=== PATIENT | male | born 2000 | race Caucasian/White ===

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

== ENCOUNTER 2019-08-25 13:23 | Outpatient (REF) | payer OTHER, SELFPAY ==
[2019-08-25 22:15] LABS: HCT 41.3 % (40.0-50.0); HGB 14.1 g/dL (13.5-17.5); Mean Corp. HGB Concentration 34.1 g/dL (32.0-36.0); Mean Corpuscular Hemoglobin 28.9 pg (27.0-33.0); Mean Corpuscular Volume 84.6 fL (80-95); Mean Platelet Volume 9.8 fL (8.0-11.0); Platelet Count 288 x1000/uL (130-400); RBC 4.88 m/cumm (4.50-6.00); RBC Distribution Width 12.5 % (11.8-14.1); White Blood Cell Count 4.67 k/cumm (4.4-10.8)
[2019-08-25 22:41] LABS: ALT 19 U/L (16-63); AST 14 U/L (15-37); Anion Gap 7.7 mmol/L (3-11); BUN 9 mg/dL (7-18); CO2 29.3 mmol/L (21.0-32.0); CREATININE 0.84 mg/dL (0.70-1.30); Calcium 8.9 mg/dL (8.5-10.1); Chloride 105 mmol/L (98-107); Glucose 93 mg/dL (70-100); Lipase 68 U/L (73-393); Potassium 4.2 mmol/L (3.5-5.1); Sodium 142 mmol/L (136-145); TSH 0.57 uIU/mL (0.52-4.13)
== END 2019-08-25 13:43 ==
LOC: NCHCO 13:23
PROVIDERS: PCP Family Medicine; Visit Provider Nurse Practitioner Family
DX: R10.9 Unspecified abdominal pain (principal); R53.83 Other fatigue
CPT/HCPCS: 80048; 83690; 85027; 84443; 84450; 84460

== ENCOUNTER 2019-09-20 08:27 | Outpatient (CLI) | payer OTHER, SELFPAY | END 2019-09-20 08:47 | PROVIDERS: PCP Nurse Practitioner Family; Visit Provider Internal Medicine Cardiovascular Disease | DX: R07.9 Chest pain, unspecified (principal); K21.9 Gastro-esophageal reflux disease without esophagitis | CPT/HCPCS: 93005; 93010 ==

== ENCOUNTER 2020-01-04 12:06 | Emergency (ER) | payer OTHER, SELFPAY ==
[2020-01-04 12:15] VITALS: BP 127/61; PULSE 96; RESP 18; TEMP 36.7; O2SAT 98
[2020-01-04] MEDS: Ondansetron O.D.T. 4 MG TABEF PO (12:31)
--- NOTE | 2020-01-04 12:56 | NUR.NOTE ---
given small amt of ice chips
[2020-01-04 13:57] VITALS: BP 109/85; PULSE 99; RESP 15; TEMP 37; O2SAT 97
--- NOTE | 2020-01-04 13:58 | NUR.NOTE ---
tolerated ice chips, taking sips of layne marlon
--- NOTE | 2020-01-04 14:04 | W.ED.GENAD ---
Discharge Plan Disposition Patient Disposition: HOME Condition: Stable Discharge Details Chief Complaint: Nausea/Vomit/Diar Clinical Impression: Nausea and vomiting, Loose stools Primary Care Provider: Racquel Mcdonnell ED Provider: Dionte Vasquez Home Meds and New Rx's Prescriptions: New ondansetron HCl 4 mg tablet 4 mg PO Q8H PRN (Reason: nausea and vomiting) Qty: 10 RF: 0 Continued omeprazole 20 mg capsule,delayed release(DR/EC) 20 mg PO DAILY RF: 0 Discharge Instructions Instructions: Gastroenteritis (ED), Acute Nausea and Vomiting (ED) Additional Instructions: Maintain a clear liquid diet today. Be sure to frequently take small sips of fluid in order to stay hydrated. Tomorrow morning you may advance your diet slowly to bland foods as tolerated. On you may advance her diet further as tolerated. Please contact your primary care physician to arrange follow-up. Return to the ER for any worsening or new concerning symptoms. Medical Decision Making 19-year-old male here with nausea and vomiting and loose stool since early this morning. His girlfriend also has same symptoms and they note that they both ate [employer] last night and think they may have food poisoning. Patient does have some mild upper abdominal discomfort which I suspect is muscular secondary to vomiting. He had he has mild dehydration on exam. Hemodynamically stable. Patient was administered Zofran orally and was reassessed. He noted significant improvement and was tolerating oral fluids. Usual customary discharge instructions were provided. Patient was encouraged to return immediately should he have any worsening or new concerning symptoms. HPI General Mode of arrival: ambulatory. Date/Time Provider Initiated Documentation: 01/04/20 12:22. Limitations to Documentation: no limitations. Information obtained by: patient. HPI Narrative: 19-year-old male presents with his girlfriend both complaining of nausea and vomiting. He states that yesterday they ate [employer] and thinks he may have food poisoning. His nausea and vomiting has been severe since that started around 2 AM. No modifiers. He denies hematemesis. No abdominal pain. He has had loose stools, nonbloody. Related Data Home Medications Medication Instructions Recorded Confirmed omeprazole 20 mg capsule,delayed 20 mg PO DAILY 09/17/19 09/17/19 release ondansetron HCl 4 mg PO Q8H PRN #10 tab 01/04/20 Previous Rx's Medication Instructions Recorded ondansetron HCl 4 mg PO Q8H PRN #10 tab 01/04/20 Allergies Allergy/AdvReac Type Severity Reaction Status Date / Time No Known Allergies Allergy Unverified 09/20/19 13:05 General Stated Complaint: Nausea/Vomit/Diar VINI: 3 Review of Systems All systems reviewed & are unremarkable except as noted in HPI and below Constitutional Constitutional: Reports body ache(s) and Denies fever(s) Gastrointestinal Gastrointestinal: Denies abdominal pain, Reports loose stools, Reports nausea, Reports vomiting and Reports other (cramps) [facility]LY [facility] Medical History Abdominal pain (Acute) Chest pain (Acute) Chest pain (Acute) Depression (Chronic) GERD (gastroesophageal reflux disease) (Chronic) Social History Smoking/Tobacco Use Status: Never Tobacco: How many years used: 4 Alcohol Intake: never Drug use: Never Substance use type: marijuana Do you feel safe at home: Yes Do you feel safe in your relationship?: Yes Exam Const General: cooperative and no acute distress HENMT Mouth: mucous membranes dry Eyes Conjunctivae: normal conjunctivae Sclera: normal sclerae Resp Auscultation: clear to auscultation bilaterally, no rales, no rhonchi and no wheezes Cardio Jugular venous pressure: no JVD Rate: regular rate and not tachycardic Rhythm: regular rhythm GI Palpation: soft, not firm, no guarding, no masses, not rigid and tender in the epigastrum (mild) Auscultation: normal bowel sounds Neuro General: alert, awake and tone normal Extrem General: no edema Psych Appearance: grossly normal Course Vital Signs Vital signs: Vital Signs Temperature 36.7 C 01/04/20 12:15 Pulse 96 H 01/04/20 12:15 Respiratory Rate 18 01/04/20 12:15 Blood Pressure 127/61 01/04/20 12:15 Pulse Oximetry 98 01/04/20 12:15 Temperature 37 C 01/04/20 13:57 Temperature Source Temporal Artery Scan 01/04/20 13:57 Pulse 99 H 01/04/20 13:57 Respiratory Rate 15 01/04/20 13:57 Respiratory Effort Non-Labored 01/04/20 12:31 Blood Pressure 109/85 01/04/20 13:57 Blood Pressure Position Sitting 01/04/20 12:15 Pulse Oximetry 97 01/04/20 13:57 Oxygen Delivery Method Room Air 01/04/20 13:57 Oxygen Flow Rate 0 01/04/20 13:57 Pain Level 0 01/04/20 13:57
== END 2020-01-04 14:16 | disposition home or self-care (01) ==
PROVIDERS: Emergency Provider Student in an Organized Health Care Education/Training Program; PCP Nurse Practitioner Family
DX: R11.2 Nausea with vomiting, unspecified (principal); R19.7 Diarrhea, unspecified; R51 Headache; E86.0 Dehydration
CPT/HCPCS: 99283

== ENCOUNTER 2021-10-05 15:00 | Emergency (ER) | payer OTHER, SELFPAY ==
[2021-10-05 15:18] VITALS: BP 123/76; PULSE 81; RESP 16; TEMP 37; O2SAT 97
--- NOTE | 2021-10-05 15:30 | DI.CT_ITS ---
Exam(s) CT ABDOMEN PELVIS W EXAM: CT ABDOMEN PELVIS W CLINICAL HISTORY: LUQ pain, left flank pain TECHNIQUE: Imaging Protocol: Axial computed tomography images with coronal and sagittal reformatted images were created and reviewed CONTRAST MATERIAL: Intravenous: Omnipaque 350 Contrast volume:100 mL Oral: No COMPARISON: No exams were available for comparison FINDINGS: ABDOMEN: Lung Bases: Normal where visualized. Liver: Normal density. No measurable mass. Portal, Superior Mesenteric, and Splenic Veins: Unremarkable. Gallbladder and Biliary Tract: No radiodense calculus or dilation. Pancreas: Normal density, no abnormal calcifications or inflammatory process. Spleen: Normal. Adrenals: No masses seen. Kidneys: Normal size, contour and axis. No radiodense stones or obstructive uropathy. No masses seen. Abdominal Aorta: Abdominal portion non-dilated. Bowel: No obstruction or bowel wall thickening. Appendix is unremarkable. There is a moderate amount of stool throughout the colon which may reflect constipation. Peritoneal Cavity: No ascites, collection or mesenteric inflammatory response. No free air. Lymph Nodes: Within normal limits. Bones: Within normal limits for the patient's age. Soft Tissues: Unremarkable. PELVIS: Bladder: Symmetric distention, no gross wall thickening. Reproductive Organs: Unremarkable as visualized. Lymph Nodes: Within normal limits. Bones: Within normal limits for the patient's age. IMPRESSION: No acute abdominal or pelvic process. RADIATION DOSE DELIVERED: 618.67mGy.cm Total DLP DATA REPOSITORY: All CT scans at this facility are submitted to the National Radiology Data Registry (NRDR) Dose Index Registry (DIR) with the [employer] (ACR). RADIATION OPTIMIZATION: All CT scans at this facility use at least one of these dose optimization te chniques: automated exposure control; mA and/or kV adjustment per patient size (includes targeted exa ms where dose is matched to clinical indication); or iterative reconstruction.
[2021-10-05 16:58] LABS: ALT 32 U/L (16-63); AST 25 U/L (15-37); Albumin 4.2 g/dL (3.4-5.0); Alkaline Phosphatase 80 U/L (46-116); Anion Gap 3.4 mmol/L (3-11); BUN 11 mg/dL (7-18); Bilirubin, Total 0.3 mg/dL (0.2-1.0); CO2 32.6 mmol/L (21.0-32.0); Calcium 9.1 mg/dL (8.5-10.1); Chloride 102 mmol/L (98-107); Glucose 102 mg/dL (74-106); Lipase 117 U/L (73-393); Potassium 4.3 mmol/L (3.5-5.1); Sodium 138 mmol/L (136-145); Total Protein 8.1 g/dL (6.4-8.2)
[2021-10-05 17:01] LABS: Absolute Basophil Count 0.07 10^3/uL (0.0-0.2); Absolute Eosinophil Count 0.23 10^3/uL (0.0-0.7); Absolute Lymphocyte Count 1.99 10^3/uL (1.2-3.4); Absolute Monocyte Count 0.52 10^3/uL (0.1-0.8); Absolute Neutrophil Count 2.76 10^3/uL (1.2-6.7); Basophils % 1.3; Eosinophils % 4.1; HCT 42.5 % (40.0-50.0); HGB 14.8 g/dL (13.5-17.5); Lymphocytes % 35.7; MCH 29.2 pg (27.0-33.0); MCHC 34.8 % (32.0-36.0); MCV 83.8 fL (80-95); MPV 9.1 fL (8.0-11.0); Monocytes % 9.3; Neutrophils % 49.6; Nucleated RBC 0 %; Platelet Count 302 10^3/uL (130-400); RBC 5.07 10^6/uL (4.36-5.78); RDW 11.5 % (11.8-14.1); RDW-SD 34.8 fL; WBC 5.57 10^3/uL (4.4-10.8)
[2021-10-05 18:01] VITALS: BP 132/82; PULSE 73; TEMP 36.6; O2SAT 98
[2021-10-05] MEDS: Omnipaque 350 MG/ML 100 ML BTL IJ (18:09)
[2021-10-05] MEDS: Normal Saline - Diluent 50 ML VIAL IV (18:10)
--- NOTE | 2021-10-05 18:41 | ED.GENADUL_ITS ---
Discharge Plan Disposition Patient Disposition: HOME Condition: Good Discharge Details Clinical Impression: Back pain Primary Care Provider: Racquel Mcdonnell ED Provider: Terese Vargas Home Meds and New Rx's Prescriptions: New cyclobenzaprine 10 mg tablet 10 mg PO TID PRNQty: 14 RF: 0 Continued omeprazole 40 mg Capsule,Delayed Release(Dr/Ec) 40 mg PO DAILY RF: 0 Discharge Instructions Instructions: Back Pain (ED) Additional Instructions: Take ibuprofen 600 mg every 8 hours with food You may take the Flexeril as needed for musculoskeletal pain You can also use [id number] Lidoderm patches as needed for pain There is no evidence of any injury to your spleen on your imaging study, your spine looks good, and no visible ribs Please return should you develop new or worsening complaints Discharge Data Discharge Date/Time-TO BE ENTERED AT DEPARTURE: 10/05/21 19:51 Medical Decision Making Patient is alert, oriented, of decisional capacity her CT scan does not show acute abnormality, consider Haleigh has had a CT scan, the patient is tenderness complaints and mid axillary region on the left side after a fall down 9 stairs 2 weeks prior to arrival He has missed concerned regarding his spleen, hand and unable to relation this patient that he has not injured his spleen, therefore we discussed risk benefit of radiation with CAT scan and he has agreed to these 3 Return precautions discussed and patient expressed understanding . Abdomen and pelvis negative for acute intra-abdominal pathology from the rad interpretation reviewed Home in stable condition with stable vitals, diagnostic labs to ensure acute abnormality CO2 slightly elevated at 32.6 this is of insignificant importance Medical Records Medical records reviewed: Yes I reviewed the patient's medical records. Lab Data Lab results reviewed: Yes I reviewed the patient's lab results. HPI General Mode of arrival: ambulatory . Date/Time Provider Initiated Documentation: 10/05/21 15:07 . Limitations to Documentation: no limitations . Information obtained by: patient . HPI Narrative: This healthy 20-year-old male presents with left flank pain after a fall down a flight of stairs. Has been for the past 2 weeks. He denies any chest pain or shortness of breath. He denies dizziness or weakness. Denies any hematuria or dysuria. He denies any strength or sensation change to extremities or abdominal pain. He denies any blood in stool. He is otherwise reportedly healthy. Denies history of ant icoagulation. Fall was accidental, he reports. The pain is exacerbated with movement but constant nature. Patient has not had any [id number] medications. Related Data Home Medications Medication Instructions Recorded Confirmed cyclobenzaprine 10 mg PO TID PRN #14 tab 10/05/21 omeprazole 40 mg PO DAILY 10/05/21 10/05/21 Previous Rx's Medication Instructions Recorded cyclobenzaprine 10 mg PO TID PRN #14 tab 10/05/21 Allergies Allergy/AdvReac Type Severity Reaction Status Date / Time No Known Allergies Allergy Unverified 10/05/21 15:25 General Stated Complaint: GenMedical VINI: 3 Review of Systems All systems reviewed & are unremarkable except as noted in HPI and below PFSH Medical History Abdominal pain Chest pain Chest pain Depression Family history of Cano's esophagus Mother, sister ,grandmother per PCP note- [facility] D[facility] Plascencia GERD (gastroesophageal reflux disease) Vapes nicotine containing substance Social History Smoking/Tobacco Use Status: Never Tobacco: How many years used: 4 Smoking risk assessment performed?: Yes Alcohol Intake: never Drug use: Occasionally Substance use type: marijuana Do you feel safe at home: Yes Do you feel safe in your relationship?: Yes Exam Const General: cooperative and comfortable Orientation: alert and oriented x3 HENMT Head: normal to inspection Eyes Pupils: PERRL Resp Effort & Inspection: normal respiratory effort Auscultation: clear to auscultation bilaterally Cardio Rate: regular rate Rhythm: regular rhythm GI Other: Tenderness with palpation in the left flank, no left upper quadrant tenderness No bruising Skin General skin exam: no rashes or lesions noted Neuro General: patient alert and patient oriented x3 Other: GCS 15 Extrem Other: No visible sign of trauma right Course Vital Signs Vital signs: Vital Signs Temperature 37 C 10/05/21 15:18 Pulse 81 10/05/21 15:18 Respiratory Rate 16 10/05/21 15:18 Blood Pressure 123/76 10/05/21 15:18 Pulse Oximetry 97 10/05/21 15:18 Temperature 36.6 C 10/05/21 18:01 Temperature Source Oral 10/05/21 18:01 Pulse 73 10/05/21 18:01 Respiratory Rate 16 10/05/21 15:18 Respiratory Effort 10/05/21 18:13 Respiratory Depth Normal 10/05/21 18:13 Blood Pressure 132/82 10/05/21 18:01 Blood Pressure Position Sitting 10/05/21 15:18 Pulse Oximetry 98 10/05/21 18:01 Oxygen Delivery Method Room Air 10/05/21 18:01 Oxygen Flow Rate 0 10/05/21 18:01 Pain Level 7 10/05/21 15:18 Lab/Test Results Lab/Test Results: Laboratory Tests Range/Units 10/05/21 10/05/21 16:27 16:27 WBC (4.4-10.8) 10^3/uL 5.57 RBC (4.36-5.78) 10^6/uL 5.07 Hgb (13.5-17.5) g/dL 14.8 Hct (40.0-50.0) % 42.5 MCV (80-95) fL 83.8 MCH (27.0-33.0) pg 29.2 MCHC (32.0-36.0) % 34.8 RDW (11.8-14.1) % 11.5 L Plt Count (130-400) 10^3/uL 302 MPV (8.0-11.0) fL 9.1 Immature Gran % 0.0 Neutrophils % 49.6 Lymphocytes % 35.7 Monocytes % 9.3 Eosinophils % 4.1 Basophils % 1.3 Nucleated RBC % % 0 Absolute Neutrophils (1.2-6.7) 10^3/uL 2.76 Absolute Lymphocytes (1.2-3.4) 10^3/uL 1.99 Absolute Monocytes (0.1-0.8) 10^3/uL 0.52 Absolute Eosinophils (0.0-0.7) 10^3/uL 0.23 Absolute Basophils (0.0-0.2) 10^3/uL 0.07 Sodium (136-145) mmol/L 138 Potassium (3.5-5.1) mmol/L 4.3 Chloride (98-107) mmol/L 102 Carbon Dioxide (21.0-32.0) mmol/L 32.6 H Anion Gap (3-11) mmol/L 3.4 BUN (7-18) mg/dL 11 Creatinine (0.70-1.30) mg/dL 1.0 Estimated GFR/1.73 m2 (mL/min/1.73m2) >= 60.00 Glucose (74-106) mg/dL 102 Calcium (8.5-10.1) mg/dL 9.1 Total Bilirubin (0.2-1.0) mg/dL 0.3 AST (15-37) U/L 25 ALT (16-63) U/L 32 Alkaline Phosphatase (46-116) U/L 80 Total Protein (6.4-8.2) g/dL 8.1 Albumin (3.4-5.0) g/dL 4.2 Lipase (73-393) U/L 117 PAWSS Have you Been Recently Intoxicated or Drunk Within the Last 30 days?: Yes Have you Ever Experienced Previous Episodes of Alcohol Withdrawal?: No Have you ever Experienced Withdrawal Seizures?: No Have you ever Experienced Delirium Tremens(DT)s?: No Have you ever undergone Alcohol Rehabilitation Treatment (i.e, inpt ot outpatient treatment programs)?: No Have you ever Experienced Blackouts?: No Have you ever Combined Alcohol with other Downers within the last 90 days?: No Have you ever Combined Alcohol with any other Substance of Abuse during the last 90 days?: No Positive Blood Alcohol level on Presentation? [PCS.BAL]: No Evidence of Increased Autonomic Activity (i.e. HR>120, tremor, sweating, agitation, nausea)?: No Result: 1
--- NOTE | 2021-10-05 18:41 | DI.VRAD_ITS ---
PROCEDURE INFORMATION: Exam: CT Abdomen And Pelvis With Contrast Exam date and time: 10/05/2021 3:47 PM Age: 20 years old Clinical indication: Abdominal pain; Localized; Left upper quadrant (luq); Patient HX: Luq pain, left flank pain TECHNIQUE: Imaging protocol: Computed tomography of the abdomen and pelvis with contrast. COMPARISON: No relevant prior studies available. FINDINGS: Liver: Normal. No mass. Gallbladder and bile ducts: Normal. No calcified stones. No ductal dilation. Pancreas: Normal. No ductal dilation. Spleen: Normal. No splenomegaly. Adrenal glands: Normal. No mass. Kidneys and ureters: Normal. No hydronephrosis. Stomach and bowel: Findings consistent with constipation. No obstruction. No mucosal thickening Appendix: Normal appendix Intraperitoneal space: Unremarkable. No free air. No significant fluid collection. Vasculature: Unremarkable. No abdominal aortic aneurysm. Lymph nodes: Unremarkable. No enlarged lymph nodes. Urinary bladder: Unremarkable as visualized. Reproductive: Unremarkable as visualized. Bones/joints: Unremarkable. No acute fracture. Soft tissues: Unremarkable. IMPRESSION: No acute process Dictated and Authenticated by: Paulette Mcdonough MD. Ordering:AMRIK Gudino MD
[2021-10-05 19:49] VITALS: BP 118/84; PULSE 88; RESP 20; TEMP 36.8; O2SAT 98
== END 2021-10-05 19:51 | disposition home or self-care (01) ==
PROVIDERS: Emergency Provider Physician Assistant; PCP Nurse Practitioner Family
DX: R10.12 Left upper quadrant pain (principal); M54.6 Pain in thoracic spine; W10.8XXA Fall (on) (from) other stairs and steps, initial encounter
CPT/HCPCS: 36415; 80053; 83690; 99285; 74177; 85025; 99284; J3490

== ENCOUNTER 2022-08-04 22:16 | Emergency (ER) | payer OTHER, SELFPAY ==
[2022-08-04 22:19] VITALS: BP 137/89; PULSE 76; RESP 17; TEMP 36.7; O2SAT 97
--- NOTE | 2022-08-04 22:30 | DI.CT_ITS ---
Exam(s) CT RENAL COLIC WO EXAM: CT RENAL COLIC WO CLINICAL HISTORY: Flank Pain. TECHNIQUE: Imaging Protocol: Axial computed tomography images with coronal and sagittal reformatted images were created and reviewed CONTRAST MATERIAL: Intravenous: none Oral: None COMPARISON: CT CT ABDOMEN PELVIS W from 10/05/2021 FINDINGS: VISUALIZED LUNG BASES: No nodules nor pleural effusions evident. ABDOMEN: There is no ascites. LIVER: There are no obvious focal hepatic lesions evident of this noninfused study. GALLBLADDER/BILIARY: No obvious gallbladder pathology. CBD is not dilated. PANCREAS: No evidence of pancreatic mass nor dilatation of the pancreatic duct. SPLEEN: Spleen is not enlarged. No obvious intrasplenic lesions. ADRENALS: There are no significant adrenal masses. KIDNEYS:No cysts evident. No solid renal masses. No calculi nor hydronephrosis. . ABDOMINAL AORTA: Abdominal aorta is not enlarged. LYMPH NODES: There is no retroperitoneal nor paraaortic adenopathy. ABDOMINAL WALL: No evidence of significant anterior abdominal wall nor inguinal hernia. GI: There is no evidence of bowel obstruction, free air, nor abscess. PELVIS: LYMPH NODES: There is no intrapelvic nor inguinal adenopathy. GI: No evidence of appendicitis.No evidence of sigmoid diverticulitis. URINARY BLADDER: No calculi nor obvious masses evident REPRODUCTIVE: Prostate size normal. OSSEOUS: No significant osseous lesions. No fractures. No evidence of sacroiliitis IMPRESSION: 1. No evidence of nephrolithiasis nor hydronephrosis/hydroureter. No radiopaque calculi seen in the urinary bladder. 2. No other significant findings. RADIATION DOSE DELIVERED: 600.58mGy.cm Total DLP DATA REPOSITORY: All CT scans at this facility are submitted to the National Radiology Data Registry (NRDR) Dose Index Registry (DIR) with the [employer] (ACR). RADIATION OPTIMIZATION: All CT scans at this facility use at least one of these dose optimization te chniques: automated exposure control; mA and/or kV adjustment per patient size (includes targeted exa ms where dose is matched to clinical indication); or iterative reconstruction.
--- NOTE | 2022-08-04 22:40 | ED.GENADUL_ITS ---
Discharge Plan Disposition Patient Disposition: HOME Condition: Stable Discharge Details Clinical Impression: Back pain Primary Care Provider: Racquel Mcdonnell ED Provider: Yue Abrams Home Meds and New Rx's Prescriptions: No Action omeprazole 40 mg Capsule,Delayed Release(Dr/Ec) 40 mg PO DAILY Label Comments: Pt hasn't taken in a couple months, ran out 08/04/22 ibuprofen 200 mg Tablet 800 mg PO Q8H PRN PRN calcium carbonate [Tums Ultra] 400 mg calcium (1,000 mg) Tablet,Chewable 5,000 mg PO Q4H PRN PRN Discharge Instructions Instructions: Back Pain (ED) Additional Instructions: Labs, CT abdomen pelvis show no evidence of kidney stones no urinary tract inf ection. You do have a small amount of blood in your urine. Use the Flexeril as needed for muscle spasm. Alternate ice and heat. Please take Tylenol or Ibuprofen with food every 4-6 hours as needed for pain and swelling. Follow up with primary care provider in 3-5 days. Return to ED sooner if any worsening or concerns. Increase oral fluids. Referrals: Racquel Mcdonnell [Primary Care Provider] - 3 days Medical Decision Making 21-year-old male presents with back pain right worse greater than the left which radiates around to his right groin. Associated with nausea no vomiting. Denies any dysuria. Differential diagnosis includes not limited to UTI, Paresh, kidney stones, back strain Urinalysis, CBC CMP CT without contrast ordered. Zofran and Toradol given. No significant change after the Toradol. CT is within normal limits no evidence of kidney stone or urinary tract infection. Patient does have trace RBCs in the urine. Discussed results with patient who verbalized understanding. Patient was given Flexeril instructed to alternate ice and heat and to follow-up with PCP. Patient verbalized understanding. This text was generated using [employer] system, please disregard any oddities of phrase or misspellings. Medical Records Medical records reviewed: Yes I reviewed the patient's medical records. Imaging Data Radiologic Study: Imaging: CT Scan Radiologist's impression: COMPARISON: CT ABDOMEN PELVIS W 10/05/2021 18:11 FINDINGS: Liver: No hepatic masses on noncontrast imaging. Gallbladder and bile ducts: No calcified stones. No ductal dilation. Pancreas: No gross pathology in the pancreas on noncontrast imaging. Spleen: No splenomegaly or focal lesions. Adrenal glands: No mass. Kidneys and ureters: No nephrolithiasis or collecting system obstruction. Stomach and bowel: No gross pathology in the small bowel without IV contrast. No colitis or diverticular disease. Appendix: No evidence of appendicitis. Intraperitoneal space: No free air. No significant fluid collection. Vasculature: No abdominal aortic aneurysm. Lymph nodes: No significantly enlarged lymph nodes. Urinary bladder: Unremarkable as visualized. Reproductive: Unremarkable as visualized. Bones/joints: No acute fracture. Soft tissues: No suspicious lesions. IMPRESSION: No nephrolithiasis or collecting system obstruction. Thank you for allowing us to participate in the care of your patient. Dictated and Authenticated by: Ewelina East MD Lab Data Lab results reviewed: Yes I reviewed the patient's lab results. Labs: Laboratory Tests Range/Units 08/04/22 08/04/22 08/04/22 22:40 22:45 22:45 WBC (4.4-10.8) 10^3/uL 8.32 RBC (4.36-5.78) 10^6/uL 4.93 Hgb (13.5-17.5) g/dL 14.3 Hct (40.0-50.0) % 42.0 MCV (80-95) fL 85 MCH (27.0-33.0) pg 29.0 MCHC (32.0-36.0) % 34.0 RDW (11.8-14.1) % 11.9 Plt Count (130-400) 10^3/uL 231 MPV (8.0-11.0) fL 9.1 Immature Gran % 0.4 Neutrophils % 63.4 Lymphocytes % 22.8 Monocytes % 10.7 Eosinophils % 2.2 Basophils % 0.5 Nucleated RBC % (0.0-0.3) % 0.0 Absolute Neutrophils (1.2-6.7) 10^3/uL 5.28 Absolute Lymphocytes (1.2-3.4) 10^3/uL 1.90 Absolute Monocytes (0.1-0.8) 10^3/uL 0.89 H Absolute Eosinophils (0.0-0.7) 10^3/uL 0.18 Absolute Basophils (0.0-0.2) 10^3/uL 0.04 Sodium (136-145) mmol/L 139 Potassium (3.5-5.1) mmol/L 3.8 Chloride (98-107) mmol/L 99 Carbon Dioxide (21.0-32.0) mmol/L 31.2 Anion Gap (3-11) mmol/L 8.8 BUN (7-18) mg/dL 20 H Creatinine (0.70-1.30) mg/dL 1.1 Est GFR (CKD-EPI 2020) (mL/min/1.73m2) 97.34 Glucose (74-106) mg/dL 94 Calcium (8.5-10.1) mg/dL 9.0 Total Bilirubin (0.2-1.0) mg/dL 0.4 AST (15-37) U/L 24 ALT (16-63) U/L 38 Alkaline Phosphatase (46-116) U/L 57 Total Protein (6.4-8.2) g/dL 8.4 H Albumin (3.4-5.0) g/dL 4.4 Urine Color (Yellow) Yellow Urine Clarity (Clear) Clear Urine pH (5-8) 5.5 Ur Specific [place] (1.005-1.025) 1.015 Urine Protein (Negative) mg/dL Negative Urine Ketones (Negative) mg/dL Negative Urine Blood (Negative) Small H Urine Nitrite (Negative) Negative Urine Bilirubin (Negative) Negative Urine Urobilinogen (Up TO 0.2) EU/dL 0.2 Ur Leukocyte Esterase (Negative) Negative Urine RBC (0-2) HPF 0-2 Urine WBC (0-5) HPF 0-2 Ur Epithelial Cells (Negative) HPF Rare Urine Crystals (Negative) HPF Negative Urine Bacteria (Negative) HPF Rare Urine Casts (Negative) LPF Negative Urine Mucus (Negative) Negative Ur Culture Indicated? No Urine Glucose (Negative) mg/dL Negative HPI General Mode of arrival: ambulatory . Date/Time Provider Initiated Documentation: 08/04/22 22:24 . Limitations to Documentation: no limitations . Information obtained by: patient, RN notes reviewed and old records reviewed . HPI Narrative: 21-year-old male presents to the ER with chief complaint of bilateral flank pain, this began yesterday. He also reports nausea. Denies any dysuria or problems urinating. Does radiate around to the right lower quadrant. No significant past medical history. Did not take any medications prior to arrival. Related Data Home Medications Medication Instructions Recorded Confirmed omeprazole 40 mg capsule,delayed 40 mg PO DAILY 10/05/21 08/04/22 release calcium carbonate 400 mg calcium 5,000 mg PO Q4H PRN PRN 08/04/22 08/04/22 (1,000 mg) chewable tablet (Tums Ultra) ibuprofen 200 mg tablet 800 mg PO Q8H PRN PRN 08/04/22 08/04/22 Allergies Allergy/AdvReac Type Severity Reaction Status Date / Time No Known Allergies Allergy Unverified 08/04/22 22:28 General Stated Complaint: Urinary VINI: 3 Review of Systems All systems reviewed & are unremarkable except as noted in HPI and below Genitourinary Genitourinary: Reports flank pain PFSH All Active Problems (Updated 08/04/22 @ 23:42 by Yue Abrams NP) Back pain (Acute) Nausea and vomiting (Acute) Loose stools (Acute) Chest pain (Acute) GERD (gastroesophageal reflux disease) (Chronic) Medical History Abdominal pain Chest pain Depression Family history of Cano's esophagus Mother, sister ,grandmother per PCP note- [facility] DONG Plascencia Vapes nicotine containing substance Social History Smoking/Tobacco Use Status: Current every day Tobacco Type: e-cigarettes Tobacco: How many years used: 4 Smoking risk assessment performed?: Yes Alcohol Intake: current Alcohol Intake frequency: 3 or more drinks per day Alcohol type: beer Drug use: Never Substance use type: former substance user Do you feel safe at home: Yes Do you feel safe in your relationship?: Yes Exam Narrative Exam Narrative: Constitutional: Alert and oriented x3. Appears stated age. Normal body habitus. Head: Normocephalic, no trauma. Eyes: Pupils PERRL, Red reflex noted, EOM's intact. Eyelids symmetrical without lesions, discharge, or swelling. ENT: Bilateral TM's WNL, External ear normal to inspection, no mastoid TTP, swelling, or erythema, Nasal turbinates WNL, no nasal discharge. Normal dentition, Posterior pharynx WNL, no exudate. Chest: RRR, Normal S1, S2, distal pulses intact. Resp: Lungs clear to auscultation bilaterally, no wheezes, rales, or rhonchi. Abdomen: Soft, non-distended, Normoactive bowel sounds all 4 quads. Musculoskeletal: Normal gait, 5/5 strength to all four extremities. Skin: No suspicious rashes or lesions. Capillary refill less than 2 sec. Neurologic: Cranial nerves II-XII intact. Alert and oriented x 3. Motor: No deficits noted. Sensory: Intact bilaterally all 4 extremities. Reflexes: DTR's intact bilaterally.. Hematologic/Lymphatic: No ecchymosis, no lymphadenopathy. Course Vital Signs Vital signs: Vital Signs Temperature 36.7 C 08/04/22 22:19 Pulse 76 08/04/22 22:19 Respiratory Rate 17 08/04/22 22:19 Blood Pressure 137/89 08/04/22 22:19 Pulse Oximetry 97 08/04/22 22:19 Temperature 36.7 C 08/04/22 22:19 Temperature Source Oral 08/04/22 22:19 Pulse 76 08/04/22 22:19 Respiratory Rate 17 08/04/22 22:19 Respiratory Effort Non-Labored 08/04/22 22:22 Blood Pressure 137/89 08/04/22 22:19 Blood Pressure Position Sitting 08/04/22 22:19 Pulse Oximetry 97 08/04/22 22:19 Oxygen Delivery Method Room Air 08/04/22 22:19 Oxygen Flow Rate 0 08/04/22 22:19 Pain Level 7 08/04/22 22:22 PAWSS Have you Been Recently Intoxicated or Drunk Within the Last 30 days?: Yes Have you Ever Experienced Previous Episodes of Alcohol Withdrawal?: No Have you ever Experienced Withdrawal Seizures?: No Have you ever Experienced Delirium Tremens(DT)s?: No Have you ever undergone Alcohol Rehabilitation Treatment (i.e, inpt ot outpatient treatment programs)?: No Have you ever Experienced Blackouts?: No Have you ever Combined Alcohol with other Downers within the last 90 days?: No Have you ever Combined Alcohol with any other Substance of Abuse during the last 90 days?: No Positive Blood Alcohol level on Presentation? [PCS.BAL]: Unable to Obtain Evidence of Increased Autonomic Activity (i.e. HR>120, tremor, sweating, agitation, nausea)?: No Result: 1
[2022-08-04 22:52] LABS: Bilirubin Negative (Negative); Blood Small (Negative); Clarity Clear (Clear); Glucose Negative (Negative); Ketones Negative (Negative); Leukocyte Esterase Negative (Negative); Nitrite Negative (Negative); Specific Gravity 1.015 (1.005-1.025); Urobilinogen 0.2 EU/dL (Up TO 0.2); pH 5.5 (5-8)
[2022-08-04 22:53] LABS: Abs Immature Grans 0.03 10^3/uL (0.0-0.06); Absolute Basophil Count 0.04 10^3/uL (0.0-0.2); Absolute Eosinophil Count 0.18 10^3/uL (0.0-0.7); Absolute Monocyte Count 0.89 10^3/uL (0.1-0.8); Absolute Neutrophil Count 5.28 10^3/uL (1.2-6.7); Basophils % 0.5; Eosinophils % 2.2; HGB 14.3 g/dL (13.5-17.5); Immature Grans % 0.4; Lymphocytes % 22.8; MCV 85 fL (80-95); MPV 9.1 fL (8.0-11.0); Monocytes % 10.7; Neutrophils % 63.4; Platelet Count 231 10^3/uL (130-400); RBC 4.93 10^6/uL (4.36-5.78); RDW 11.9 % (11.8-14.1); RDW-SD 36.8 fL; WBC 8.32 10^3/uL (4.4-10.8)
[2022-08-04] MEDS: Ondansetron 4 MG/2 ML VIAL IVP (22:56)
[2022-08-04] MEDS: Ketorolac 15 MG/ML VIAL IVP (22:57)
[2022-08-04] MEDS: Normal Saline 1,000 ML 1000 ML IV (22:57)
[2022-08-04 23:07] LABS: Bacteria Rare HPF (Negative); C & S Indicated? No; Casts Negative LPF (Negative); Crystals Negative HPF (Negative); Epithelial Cells Rare HPF (Negative); Mucus Negative (Negative); RBC 0-2 HPF (0-2); WBC 0-2 HPF (0-5)
[2022-08-04 23:15] LABS: ALT 38 U/L (16-63); AST 24 U/L (15-37); Albumin 4.4 g/dL (3.4-5.0); Alkaline Phosphatase 57 U/L (46-116); Anion Gap 8.8 mmol/L (3-11); BUN 20 mg/dL (7-18); Bilirubin, Total 0.4 mg/dL (0.2-1.0); CO2 31.2 mmol/L (21.0-32.0); CREATININE 1.1 mg/dL (0.70-1.30); Chloride 99 mmol/L (98-107); Estimated GFR 97.34 (mL/min/1.73m2); Glucose 94 mg/dL (74-106); Potassium 3.8 mmol/L (3.5-5.1); Sodium 139 mmol/L (136-145); Total Protein 8.4 g/dL (6.4-8.2)
--- NOTE | 2022-08-04 23:32 | DI.VRAD_ITS ---
PROCEDURE INFORMATION: Exam: CT Abdomen And Pelvis Without Contrast Exam date and time: 08/04/2022 23:08 Age: 21 years old Clinical indication: Abdominal pain; Patient HX: Flank pain TECHNIQUE: Imaging protocol: Computed tomography of the abdomen and pelvis without contrast. Radiation optimization: All CT scans at this facility use at least one of these dose optimization techniques: automated exposure control; mA and/or kV adjustment per patient size (includes targeted exams where dose is matched to clinical indication); or iterative reconstruction. COMPARISON: CT ABDOMEN PELVIS W 10/05/2021 18:11 FINDINGS: Liver: No hepatic masses on noncontrast imaging. Gallbladder and bile ducts: No calcified stones. No ductal dilation. Pancreas: No gross pathology in the pancreas on noncontrast imaging. Spleen: No splenomegaly or focal lesions. Adrenal glands: No mass. Kidneys and ureters: No nephrolithiasis or collecting system obstruction. Stomach and bowel: No gross pathology in the small bowel without IV contrast. No colitis or diverticular disease. Appendix: No evidence of appendicitis. Intraperitoneal space: No free air. No significant fluid collection. Vasculature: No abdominal aortic aneurysm. Lymph nodes: No significantly enlarged lymph nodes. Urinary bladder: Unremarkable as visualized. Reproductive: Unremarkable as visualized. Bones/joints: No acute fracture. Soft tissues: No suspicious lesions. IMPRESSION: No nephrolithiasis or collecting system obstruction. Dictated and Authenticated by: Ewelina East MD. Ordering:GRAHAM Turner MD
[2022-08-04] MEDS: Cyclobenzaprine 10 MG TAB, 3 TABS/BTL PO (23:46)
== END 2022-08-04 23:56 | disposition home or self-care (01) ==
PROVIDERS: Emergency Medicine; Emergency Provider Registered Nurse Emergency; PCP Nurse Practitioner Family
DX: M54.9 Dorsalgia, unspecified (principal); R10.31 Right lower quadrant pain; R11.0 Nausea; F17.290 Nicotine dependence, other tobacco product, uncomplicated
CPT/HCPCS: 36415; 80053; 96361; 96374; 96375; 99284; 74176; 81003; 81015; 85025; J1885; J2405

== ENCOUNTER 2023-01-22 15:47 | Emergency (ER) | payer OTHER, SELFPAY ==
[2023-01-22 15:52] VITALS: BP 112/70; PULSE 87; RESP 16; TEMP 35.9; O2SAT 97
--- NOTE | 2023-01-22 16:08 | W.ED.GENAD ---
Discharge Plan Disposition Patient Disposition: Home Discharge Details Clinical Impression: Strep pharyngitis Primary Care Provider: Racquel Mcdonnell ED Provider: Yue Abrams Home Meds and New Rx's Prescriptions: New penicillin V potassium 500 mg tablet 500 mg PO BID 10 Days Qty: 20 0RF Rx Instructions: Take one tablet by mouth twice daily x 10 days. No Action omeprazole 40 mg Capsule,Delayed Release(Dr/Ec) 40 mg PO DAILY Patient Comments: Pt hasn't taken in a couple months, ran out 08/04/22 ibuprofen 200 mg Tablet 800 mg PO Q8H PRN PRN calcium carbonate [Tums Ultra] 400 mg calcium (1,000 mg) Tablet,Chewable 5,000 mg PO Q4H PRN PRN Discharge Instructions Instructions: Strep Throat (ED) Additional Instructions: You have tested positive for strep throat. Please take the antibiotic twice a day for the next 10 days with yogurt or probiotic. You are given the first dose here in the department. Gargle with warm salt water is up to 3 times daily as needed. You may use the throat spray up to 3 times a day also as needed. Please take Tylenol or Ibuprofen with food every 4-6 hours as needed for pain and swelling. Follow up with primary care provider in 3-5 days. Return to ED sooner if any worsening or concerns. Increase oral fluids. Referrals: Racquel Mcdonnell [Primary Care Provider] - 3 days Discharge Data Discharge Date/Time-TO BE ENTERED AT DEPARTURE: 01/22/23 16:28 Medical Decision Making 22-year-old male presents to the ER with chief complaint of sore throat for the last few days. He denies any fever or chills. Denies any cough or productive cough. He does report pain with swallowing. Denies any ear pain or any other associated symptoms. He has been taking DayQuil and NyQuil with little to no relief. On exam he does have a slight hoarse voice, no significant cervical lymphadenopathy, he does have erythemic oropharynx uvula is midline and swollen. Past medical history includes GERD, back pain. Rapid strep positive. 10 mg dexamethasone p.o. ordered, ibuprofen and HurriCaine spray. We will give patient Pen-Vee K 500 mg p.o. here and prescription. I did offer IM Bicillin which patient declined at this time. This text was generated using [employer] dictation system, please disregard any oddities of phrase or misspellings. Actually HPI General Mode of arrival: ambulatory. Date/Time Provider Initiated Documentation: 01/22/23 15:50. Limitations to Documentation: no limitations. Information obtained by: patient, RN notes reviewed and old records reviewed. HPI Narrative: 22-year-old male presents to the ER with chief complaint of sore throat for the last few days. He denies any fever or chills. Denies any cough or productive cough. He does report pain with swallowing. Denies any ear pain or any other associated symptoms. He has been taking DayQuil and NyQuil with little to no relief. On exam he does have a slight hoarse voice, no significant cervical lymphadenopathy, he does have erythemic oropharynx uvula is midline and swollen. Past medical history includes GERD, back pain. He does smoke or vape daily. No known drug allergies. Related Data Home Medications Medication Instructions Recorded Confirmed omeprazole 40 mg capsule,delayed 40 mg PO DAILY 10/05/21 08/04/22 release calcium carbonate 400 mg calcium 5,000 mg PO Q4H PRN PRN 08/04/22 08/04/22 (1,000 mg) chewable tablet (Tums Ultra) ibuprofen 200 mg tablet 800 mg PO Q8H PRN PRN 08/04/22 08/04/22 penicillin V potassium 500 mg 500 mg PO BID Strep throat 10 days 01/22/23 tablet #20 tabs Previous Rx's Medication Instructions Recorded penicillin V potassium 500 mg 500 mg PO BID Strep throat 10 days 01/22/23 tablet #20 tabs Allergies Allergy/AdvReac Type Severity Reaction Status Date / Time No Known Allergies Allergy Unverified 08/04/22 22:28 General Stated Complaint: Sorethroat VINI: 4 Review of Systems All systems reviewed & are unremarkable except as noted in HPI and below Constitutional Constitutional: Denies body ache(s), Denies chills and Denies fever(s) ENT Ears, Nose, Mouth, and Throat: Reports as per HPI, Denies otalgia, Reports nasal congestion and Reports sore throat Cardiovascular Cardiovascular: Denies chest pain and Denies dyspnea Respiratory Respiratory: Denies cough and Denies dyspnea PFSH All Active Problems (Updated 01/22/23 @ 16:20 by Yue Abrams, INDUSTRIAL SECURITY ANALYST) Back pain (Acute) Strep pharyngitis (Acute) Nausea and vomiting (Acute) Loose stools (Acute) Chest pain (Acute) GERD (gastroesophageal reflux disease) (Chronic) Medical History Abdominal pain Chest pain Depression Family history of Cano's esophagus Mother, sister ,grandmother per PCP note- [facility] DONG Plascencia Vapes nicotine containing substance Social History Smoking/Tobacco Use Status: Current every day Tobacco Type: e-cigarettes Tobacco: How many years used: 4 Smoking risk assessment performed?: Yes Alcohol Intake: current Alcohol Intake frequency: 3 or more drinks per day Alcohol type: beer Drug use: Never Substance use type: former substance user Do you feel safe at home: Yes Do you feel safe in your relationship?: Yes Exam HENMT Head: normal to inspection Ears: hearing grossly normal bilaterally, external ears normal and TM's normal bilaterally Mouth: oral mucosae normal, lip normal, tongue normal and no drooling Throat: uvula midline, posterior oropharynx abnormal erythema and uvular edema Resp Effort & Inspection: normal respiratory effort Auscultation: clear to auscultation bilaterally Cardio Rate: regular rate Heart Sounds: S1 normal and S2 normal GI Inspection: normal to inspection Palpation: soft, no guarding and nontender Course Vital Signs Vital signs: Vital Signs Temperature 35.9 C L 01/22/23 15:52 Pulse 87 01/22/23 15:52 Respiratory Rate 16 01/22/23 15:52 Blood Pressure 112/70 01/22/23 15:52 Pulse Oximetry 97 01/22/23 15:52 Temperature 35.9 C L 01/22/23 15:52 Pulse 87 01/22/23 15:52 Respiratory Rate 16 01/22/23 15:52 Blood Pressure 112/70 01/22/23 15:52 Blood Pressure Position Sitting 01/22/23 15:52 Pulse Oximetry 97 01/22/23 15:52 Oxygen Delivery Method Room Air 01/22/23 15:52 Oxygen Flow Rate 0 01/22/23 15:52 Pain Level 8 01/22/23 15:52
[2023-01-22] MEDS: Benzocaine 20% 60 ML CAN TP (16:15)
[2023-01-22] MEDS: Dexamethasone 10 MG/ML VIAL PO (16:16)
[2023-01-22] MEDS: Ibuprofen 600 MG TAB PO (16:16)
[2023-01-22] MEDS: Penicillin V POTASSIUM 500 MG TAB PO (16:17)
== END 2023-01-22 16:28 | disposition home or self-care (01) ==
PROVIDERS: Emergency Provider Registered Nurse Emergency; PCP Nurse Practitioner Family
DX: J02.0 Streptococcal pharyngitis (principal)
CPT/HCPCS: 87880; 99283; 99284; J1100

== ENCOUNTER 2023-07-20 04:39 | Emergency (ER) | payer OTHER, SELFPAY ==
[2023-07-20 04:43] VITALS: BP 124/94; PULSE 76; RESP 20; O2SAT 97
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
[2023-07-20] MEDS: Acetaminophen 500 MG TAB 1000 MG PO (05:09)
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
== END 2023-07-20 05:54 | disposition home or self-care (01) ==
PROVIDERS: Emergency Provider Student in an Organized Health Care Education/Training Program; PCP Nurse Practitioner Family
DX: S02.2XXA Fracture of nasal bones, initial encounter for closed fracture; V89.2XXA Person injured in unspecified motor-vehicle accident, traffic, initial encounter
CPT/HCPCS: 99284; 70450; 70486; 99283

== ENCOUNTER 2023-12-05 16:35 | Emergency (ER) | payer OTHER, SELFPAY ==
[2023-12-05 16:37] VITALS: BP 138/95; PULSE 76; RESP 16; TEMP 36.5; O2SAT 96
--- NOTE | 2023-12-05 16:45 | DI.RAD_ITS ---
Exam(s) XR CHEST 2V PA LATERAL EXAM: XR CHEST 2V PA LATERAL CLINICAL HISTORY: cough. TECHNIQUE: 2D digital imaging was performed. COMPARISON: No exams were available for comparison FINDINGS: 2 views: Heart size is normal. The mediastinum is not widened. Lungs are clear. No infiltrates nor pleural effusions. IMPRESSION: No acute pulmonary findings. DATA REPOSITORY: RADIATION DOSE DELIVERED:
--- NOTE | 2023-12-05 16:57 | W.ED.GENAD ---
HPI General Stated Complaint: RespSymp Mode of arrival: ambulatory. VINI: 4 Date/Time Provider Initiated Documentation: 12/05/23 16:43. Limitations to Documentation: no limitations. Information obtained by: patient. History of Present Illness cough moderate day(s) (2) constant No relieving factors improve symptom(s), No exacerbating factors reported shortness of breath; denies fever/chills and nausea/vomiting none Related Data Home Medications Medication Instructions Recorded Confirmed omeprazole 40 mg capsule,delayed 40 mg PO DAILY 10/05/21 12/05/23 release calcium carbonate 400 mg calcium 5,000 mg PO Q4H PRN PRN 08/04/22 12/05/23 (1,000 mg) chewable tablet (Tums Ultra) ibuprofen 200 mg tablet 800 mg PO Q8H PRN PRN 08/04/22 12/05/23 Allergies Allergy/AdvReac Type Severity Reaction Status Date / Time No Known Allergies Allergy Unverified 12/05/23 16:40 Review of Systems All systems reviewed & are unremarkable except as noted in HPI and below Constitutional Constitutional: Denies chills, Denies fever(s) and Denies weakness Cardiovascular Cardiovascular: Denies chest pain and Reports dyspnea Respiratory Respiratory: Reports cough and Reports dyspnea Gastrointestinal Gastrointestinal: Denies abdominal pain, Denies nausea and Denies vomiting Integumentary/Breasts Skin/Breast: Denies rash Neurologic Neurologic: Denies weakness PFSH All Active Problems (Updated 12/05/23 @ 18:04 by Florian Mariscal MD) Respiratory syncytial virus (RSV) (Acute) Cough (Acute) Back pain (Acute) Nausea and vomiting (Acute) Loose stools (Acute) Chest pain (Acute) GERD (gastroesophageal reflux disease) (Chronic) Medical History Abdominal pain Chest pain Depression Family history of Cano's esophagus Mother, sister ,grandmother per PCP note- [facility] DONG Plascencia Vapes nicotine containing substance Social History Smoking/Tobacco Use Status: Current every day Tobacco Type: e-cigarettes Tobacco: How many years used: 4 Smoking risk assessment performed?: Yes Alcohol Intake: current Alcohol Intake frequency: 3 or more drinks per day Alcohol type: beer Drug use: Never Substance use type: former substance user Do you feel safe at home: Yes Do you feel safe in your relationship?: Yes Exam Const General: no acute distress Orientation: alert HENMT Head: normal to inspection Ears: external ears normal General nose exam: external nose normal Mouth: moist mucous membranes Eyes General: appearance normal, both eyes and all related structures Neck Neck: normal visual inspection Resp Effort & Inspection: normal respiratory effort and able to speak in complete sentences Auscultation: clear to auscultation bilaterally Cardio Jugular venous pressure: no JVD Rate: regular rate Heart Sounds: no murmurs Skin General skin exam: no rashes or lesions noted Neuro General: patient alert and patient oriented x3 Extrem General: normal to inspection Psych Mental Status: mental status grossly normal Course Vital Signs Vital signs: Vital Signs Temperature 36.5 C 12/05/23 16:37 Pulse 76 12/05/23 16:37 Respiratory Rate 16 12/05/23 16:37 Blood Pressure 138/95 H 12/05/23 16:37 Pulse Oximetry 96 12/05/23 16:37 Temperature 36.5 C 12/05/23 16:37 Temperature Source Temporal Artery Scan 12/05/23 16:37 Pulse 76 12/05/23 16:37 Respiratory Rate 16 12/05/23 16:37 Blood Pressure 138/95 H 12/05/23 16:37 Pulse Oximetry 96 12/05/23 16:37 Oxygen Delivery Method Room Air 12/05/23 16:37 Oxygen Flow Rate 0 12/05/23 16:37 Medical Decision Making 23 yo male with hx of gerd otherwise no chronic conditions comes in with 2 days of cough, body aches, and states when he has a coughing fit feels short of breath. Denies fevers, vomiting, neck stiffness, rashes, ivdu. He is caox4 on arrival and appears well speaking in full sentences. He has clear lung sounds, no murmurs, no jvd. Suspect viral uri, will check fluvid and cxr and reassess. xray unremarkable, he is positive for rsv, he is stable, advised will likely feel better in a few days if not to follow up with his pcp, return precautions given Differential Diagnosis Differential Diagnosis: covid, flu, pneumonia Imaging Data Radiologic Study: Attestation: I personally reviewed and interpreted this imaging study as follows: Imaging: X-Ray Radiologist's impression: no acute findings Lab Data Lab results reviewed: Yes I reviewed the patient's lab results. Quality:SDMT Health Related Social Needs: No Data to Display Discharge Plan Disposition Patient Disposition: Home Condition: Stable Discharge Details Clinical Impression: Cough, Respiratory syncytial virus (RSV) Primary Care Provider: Racquel Mcdonnell ED Provider: Florian Mariscal Home Meds and New Rx's Prescriptions: Continued omeprazole 40 mg Capsule,Delayed Release(Dr/Ec) 40 mg PO DAILY ibuprofen 200 mg Tablet 800 mg PO Q8H PRN PRN calcium carbonate [Tums Ultra] 400 mg calcium (1,000 mg) Tablet,Chewable 5,000 mg PO Q4H PRN PRN Discharge Instructions Instructions: Viral Syndrome (ED) Additional Instructions: you tested positive for RSV which is a virus that the body will clear on it's own if not better next week follow up with express care or your primary care provider if you feel more ill, or have severe worsening shortness of breath return to the emergency department
[2023-12-05 17:05] VITALS: BP 138/95; PULSE 76; RESP 16; TEMP 36.5; O2SAT 96
[2023-12-05 17:10] VITALS: BP 128/91; PULSE 82; RESP 15; TEMP 36.5; O2SAT 98
[2023-12-05 17:49] LABS: COVID-19 PCR Negative (Negative); Influenza A PCR Negative (Negative); Influenza B PCR Negative (Negative)
[2023-12-05 17:53] LABS: RSV PCR Positive (Negative); Source Nasopharynx
== END 2023-12-05 18:10 | disposition home or self-care (01) ==
PROVIDERS: Emergency Provider Emergency Medicine; PCP Nurse Practitioner Family
DX: J06.9 Acute upper respiratory infection, unspecified (principal); B97.4 Respiratory syncytial virus as the cause of diseases classified elsewhere
CPT/HCPCS: 87637; 99283; 71046

== ENCOUNTER 2025-02-16 16:51 | Emergency (ER) | payer OTHER, SELFPAY ==
[2025-02-16 17:11] VITALS: BP 113/71; PULSE 87; RESP 20; TEMP 37.2; O2SAT 96
[2025-02-16 17:14] VITALS: BP 113/71; PULSE 87; RESP 20; TEMP 37.2; O2SAT 96
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
--- NOTE | 2025-02-16 17:24 | ED.GENADUL_ITS ---
Discharge Plan Disposition Patient Disposition: Home Condition: Stable Discharge Details Clinical Impression: Influenza A Primary Care Provider: Racquel Mcdonnell ED Provider: Yue Abrams Home Meds and New Rx's Prescriptions: New benzonatate 100 mg capsule 100 mg PO BID-TID PRN (Reason: cough) Qty: 10 0RF Rx Instructions: Take 1 capsule up to 2-3 times daily as needed for cough No Action omeprazole 40 mg Capsule,Delayed Release(Dr/Ec) 40 mg PO DAILY ibuprofen 200 mg Tablet 800 mg PO Q8H PRN PRN calcium carbonate [Tums Ultra] 400 mg calcium (1,000 mg) Tablet,Chewable 5,000 mg PO Q4H PRN PRN Discharge Instructions Instructions: Flu, Adult ED Additional Instructions: You have tested positive for influenza A today. This can explain your cough and symptoms. It is mostly symptomatic treatment such as [id number] cough and cold medicines as you have been taking. Please take them as directed. I would probably not take them more than every 6-8 hours. Please take Tylenol or Ibuprofen with food every 4-6 hours as needed for pain and swelling. Use the albuterol inhaler as directed 1 or 2 puffs every 4-6 hours as needed. Follow up with primary care provider in 3-5 days. Return to ED sooner if any worsening or concerns. Increase oral fluids. Thank you for allowing us to care for you today. Referrals: Racquel Mcdonnell [Primary Care Provider] - 1 week HPI General Mode of arrival: ambulatory . Date/Time Provider Initiated Documentation: 02/16/25 17:14 . Limitations to Documentation: no limitations . Information obtained by: patient, RN notes reviewed and old records reviewed . HPI Narrative: 24 year old male presents to the ER with a chief complaint of cough, chest burning generalized weakness for the last couple of days. He reports some shortness of breath. He does endorse vaping occasional alcohol denies any drugs. He is speaking in full sentences no increased work of breathing. Lungs are clear to auscultation bilaterally. He has been taking DayQuil every 4 hours with little to no relief. Related Data Home Medications ?Medication ?Instructions ?Recorded ?Confirmed omeprazole 40 mg capsule,delayed 40 mg PO DAILY 10/05/21 02/16/25 release calcium carbonate (Tums Ultra) 5,000 mg PO Q4H PRN PRN 08/04/22 02/16/25 ibuprofen 200 mg tablet 800 mg PO Q8H PRN PRN 08/04/22 02/16/25 benzonatate 100 mg capsule 100 mg PO BID-TID PRN cough #10 02/16/25 caps Previous Rx's ?Medication ?Instructions ?Recorded benzonatate 100 mg capsule 100 mg PO BID-TID PRN cough #10 02/16/25 caps Allergies Allergy/AdvReac Type Severity Reaction Status Date / Time No Known Allergies Allergy Unverified 02/16/25 17:15 General Stated Complaint: RespSymp VINI: 3 Review of Systems All systems reviewed & are unremarkable except as noted in HPI and below Cardiovascular Cardiovascular: Reports dyspnea Respiratory Respiratory: Reports as per HPI, Reports cough and Reports dyspnea Exam Narrative Exam Narrative: Constitutional: Alert and oriented x3. Appears stated age. Normal body habitus. Head: Normocephalic, no trauma. Eyes: Pupils PERRL, Red reflex noted, EOM's intact. Eyelids symmetrical without lesions, discharge, or swelling. ENT: Bilateral TM's WNL, External ear normal to inspection, no mastoid TTP, swelling, or erythema, Nasal turbinates WNL, no nasal discharge. Normal dentition, Posterior pharynx WNL, no exudate. Chest: RRR, Normal S1, S2, distal pulses intact. Resp: Lungs clear to auscultation bilaterally, no wheezes, rales, or rhonchi. Abdomen: Soft, non-distended, Normoactive bowel sounds all 4 quads. Musculoskeletal: Normal gait, Moves all 4 extremities without difficulty. Skin: No suspicious rashes or lesions. Capillary refill less than 2 sec. Neurologic: Cranial nerves II-XII intact. Alert and oriented x 3. Motor: No deficits noted. Sensory: Intact bilaterally all 4 extremities. Hematologic/Lymphatic: No ecchymosis, no lymphadenopathy. Course Vital Signs Vital signs: Vital Signs Temperature 37.2 C 02/16/25 17:11 Pulse 87 02/16/25 17:11 Respiratory Rate 20 02/16/25 17:11 Blood Pressure 113/71 02/16/25 17:11 Pulse Oximetry 96 02/16/25 17:11 Temperature 37.2 C 02/16/25 17:14 Pulse 87 02/16/25 17:14 Respiratory Rate 20 02/16/25 17:14 Blood Pressure 113/71 02/16/25 17:14 Blood Pressure Position Sitting 02/16/25 17:14 Pulse Oximetry 96 02/16/25 17:14 Oxygen Delivery Method Room Air 02/16/25 17:14 Oxygen Flow Rate 0 02/16/25 17:14 Medical Decision Making 24 year old male presents to the ER with a chief complaint of cough, chest burning generalized weakness for the last couple of days. He reports some shortness of breath. He does endorse vaping occasional alcohol denies any drugs. He is speaking in full sentences no increased work of breathing. Lungs are clear to auscultation bilaterally. He has been taking DayQuil every 4 hours with little to no relief. Rapid flu COVID swab ordered, chest x-ray and albuterol inhaler. Positive for flu A. Patient given albuterol inhaler, instructed on home care verbalized understanding. This text was generated using [employer] dictation system, please disregard any oddities of phrase or misspellings. Quality:SDOH Health Related Social Needs: No Data to Display PFSH All Active Problems (Updated 02/16/25 @ 18:40 by Yue Abrams NP) Influenza A (Acute) Back pain (Acute) Nausea and vomiting (Acute) Loose stools (Acute) Chest pain (Acute) GERD (gastroesophageal reflux disease) (Chronic) Medical History Family history of Cano's esophagus Mother, sister ,grandmother per PCP note- [facility] [place] Vapes nicotine containing substance Depression Abdominal pain Chest pain Social History Smoking/Tobacco Use Status: Current every day Tobacco Type: e-cigarettes Tobacco: How many years used: 4 Smoking risk assessment performed?: Yes Alcohol Intake: current Alcohol Intake frequency: 3 or more drinks per day Alcohol type: beer Drug use: Never Substance use type: former substance user Do you feel safe at home: Yes Do you feel safe in your relationship?: Yes PAWSS Have you Been Recently Intoxicated or Drunk Within the Last 30 days?: No Have you Ever Experienced Previous Episodes of Alcohol Withdrawal?: No Have you ever Experienced Withdrawal Seizures?: No Have you ever Experienced Delirium Tremens(DT)s?: No Have you ever undergone Alcohol Rehabilitation Treatment (i.e, inpt ot outpatient treatment programs)?: No Have you ever Experienced Blackouts?: No Have you ever Combined Alcohol with other Downers within the last 90 days?: No Have you ever Combined Alcohol with any other Substance of Abuse during the last 90 days?: No Positive Blood Alcohol level on Presentation? [PCS.BAL]: No Evidence of Increased Autonomic Activity (i.e. HR>120, tremor, sweating, agitation, nausea)?: No Result: 0
[2025-02-16] MEDS: Albuterol HFA 8 GM 60 PUFF INH IH (17:48)
[2025-02-16 19:17] VITALS: BP 114/72; PULSE 78; RESP 20; TEMP 36.9; O2SAT 98
== END 2025-02-16 19:17 | disposition home or self-care (01) ==
LOC: ER 19:04
PROVIDERS: Emergency Provider Registered Nurse Emergency; PCP Nurse Practitioner Family
DX: J10.1 Influenza due to other identified influenza virus with other respiratory manifestations (principal); F17.290 Nicotine dependence, other tobacco product, uncomplicated
CPT/HCPCS: 87426; 99284; 71046